=== PATIENT | female | born 1975 | race Caucasian/White ===

== ENCOUNTER 2025-02-19 19:28 | Emergency (ER) | payer OTHER ==
[~2025-02-19] VITALS: Ht 170.2 cm; Wt 112.0 kg
[2025-02-19 19:31] VITALS: BP 141/78; PULSE 94; O2SAT 96
[2025-02-19 21:19] VITALS: RESP 16
[2025-02-19] MEDS: ketorolac trometh 15mg/ml vial 15 MG/ML ML IM ONE (21:19)
== END 2025-02-19 21:40 | disposition home or self-care (01) ==
LOC: ER 19:29
DX: G89.29 Other chronic pain (principal); M25.562 Pain in left knee; Z88.8 Allergy status to other drugs, medicaments and biological substances
CPT/HCPCS: 73564; 96372; 99283; J1885